=== PATIENT | female | born 1995 | race Caucasian/White ===

== ENCOUNTER 2020-06-07 11:05 | Observation (INO) | payer OTHER ==
[~2020-06-07] VITALS: Ht 170.2 cm; Wt 89.0 kg
[2020-06-07 12:07] LABS: BASOPHILS % (AUTO) 0 % (0-1); EOSINOPHILS % (AUTO) 1 % (1-7); LYMPHOCYTES % (AUTO) 11 % (22-44); MEAN CORPUSCULAR HEMOGLOBIN 29.3 pg (27.0-34.8); MEAN CORPUSCULAR HGB CONC 33.6 g/dL (32.4-35.8); MEAN PLATELET VOLUME 8.8 fL (7.4-10.4); MONOCYTES % (AUTO) 6 % (2-9); NEUTROPHILS % (AUTO) 82 % (42-75); PLATELET COUNT 235 x10^3/uL (130-400); RED BLOOD COUNT 4.06 x10^6/uL (3.82-5.3); RED CELL DISTRIBUTION WIDTH 13.2 % (9.6-15.2)
[2020-06-07 12:23] LABS: MD SCAN
[2020-06-07] MEDS: D5%-LACTATED RINGERS 1,000 ML IV SCH ×2 (12:45→20:45)
[2020-06-07] MEDS: AZITHROMYCIN 500 MG in SODIUM CHLORIDE 0.9% 250 ML IV ONE ×2 (16:40→17:40)
[2020-06-07] MEDS ORDERED: METOCLOPRAMIDE 5 MG/ML, 2ML ONE (17:17)
[2020-06-07] MEDS ORDERED: SODIUM CITRATE/CITRIC ACID 15 ML UDC ONE (17:17)
[2020-06-07] MEDS ORDERED: CEFAZOLIN 1,000 MG ONE (17:25)
[2020-06-07] MEDS ORDERED: EPHEDRINE 50 MG/ML, 1ML ONE (17:25)
[2020-06-07] MEDS ORDERED: EPINEPHRINE 1 MG/ML, 1ML ONE (17:25)
[2020-06-07] MEDS ORDERED: FENTANYL PF 100 MCG/2ML ONE (17:26)
[2020-06-07] MEDS ORDERED: ONDANSETRON 2MG/ML, 2ML IVPush PRN (17:30)
[2020-06-07] MEDS ORDERED: morphine SULFATE 10 MG/ML, 1ML IVPush PRN (17:30)
[2020-06-07] MEDS ORDERED: PROMETHAZINE 12.5 MG SUPP PR PRN (17:30)
[2020-06-07] MEDS ORDERED: ACETAMINOPHEN 325 MG TABLET PO PRN (17:30)
[2020-06-07] MEDS ORDERED: MEPERIDINE/PF 25MG/0.5ML IVPush PRN (17:30)
[2020-06-07] MEDS ORDERED: FENTANYL PF 100 MCG/2ML IV PRN (17:30)
[2020-06-07] MEDS ORDERED: HYDROcodone/APAP 7.5-325MG/15ML UDC PO PRN (17:30)
[2020-06-07] MEDS ORDERED: EPHEDRINE 50 MG/ML, 1ML IVPush PRN (17:30)
[2020-06-07] MEDS ORDERED: SODIUM CITRATE/CITRIC ACID 30 ML UDC PO ONE (20:00)
[2020-06-07] MEDS ORDERED: METOCLOPRAMIDE 5 MG/ML, 2ML IVPush ONE (20:00)
[2020-06-07] MEDS ORDERED: LACTATED RINGERS 1,000 ML IVBOLUS ONE (20:00)
[2020-06-07] MEDS ORDERED: PREN1TAB60 PO (20:51)
[2020-06-07] MEDS ORDERED: progesterone HOMEVAG (20:53)
[2020-06-07] MEDS ORDERED: ACET325T14 PO (20:58)
== END 2020-06-07 22:49 | disposition home or self-care (01) ==
LOC: LDIP 11:05
PROVIDERS: ADMIT Obstetrics & Gynecology Maternal & Fetal Medicine; ATTEND Obstetrics & Gynecology Maternal & Fetal Medicine
DX: O34.02 Maternal care for unspecified congenital malformation of uterus, second trimester (principal); Q51.3 Bicornate uterus; Z20.828 Contact with and (suspected) exposure to other viral communicable diseases; O34.32 Maternal care for cervical incompetence, second trimester; O26.872 Cervical shortening, second trimester; Z3A.22 22 weeks gestation of pregnancy
CPT/HCPCS: 36415; 59320; 85025; 87635; 96365; 96375; 99201; G0378; J0171; J0456; J0690; J2765; J3010; J7050; J7120; G0463

== ENCOUNTER 2020-06-16 12:58 | Outpatient (CLI) | payer OTHER ==
[~2020-06-16] VITALS: Ht 170.2 cm; Wt 86.3 kg
[~2020-06-16 12:58] MED LIST: ACET325T14 PO; PREN1TAB60 PO; progesterone HOMEVAG
== END 2020-06-16 13:05 | disposition home or self-care (01) ==
LOC: LDOP 12:58
PROVIDERS: ATTEND Obstetrics & Gynecology Maternal & Fetal Medicine
DX: O46.92 Antepartum hemorrhage, unspecified, second trimester (principal); Z3A.23 23 weeks gestation of pregnancy
CPT/HCPCS: 99211; G0463

== ENCOUNTER 2020-07-14 13:12 | Outpatient (CLI) | payer OTHER ==
[~2020-07-14] VITALS: Ht 170.2 cm; Wt 90.9 kg
[2020-07-14 13:33] VITALS: BP 117/74
[2020-07-14 13:59] LABS: MICROSCOPIC INDICATED
== END 2020-07-14 14:31 | disposition home or self-care (01) ==
LOC: LDOP 13:12
PROVIDERS: ATTEND Obstetrics & Gynecology Maternal & Fetal Medicine
DX: O26.892 Other specified pregnancy related conditions, second trimester (principal); Z3A.27 27 weeks gestation of pregnancy
CPT/HCPCS: 81001; 84112; 87086; 99211; G0463

== ENCOUNTER 2020-07-24 14:47 | Observation (INO) | payer OTHER ==
[~2020-07-24] VITALS: Ht 170.2 cm; Wt 91.8 kg
[2020-07-24] MEDS ORDERED: ONDANSETRON 2MG/ML, 2ML ONE ×2 (15:27→21:35)
[2020-07-24] MEDS ORDERED: ONDANSETRON 2MG/ML, 2ML IVPush ONE (15:30)
[2020-07-24] MEDS ORDERED: D5%-LACTATED RINGERS 1,000 ML IV SCH (15:30)
[2020-07-24 15:38] VITALS: BP 127/76
[2020-07-24 16:32] LABS: MICROSCOPIC AUTO
[2020-07-24] MEDS ORDERED: LORA1TAB46 PO (16:38)
[2020-07-24] MEDS ORDERED: HYDROmorphone 1 MG/ML, 1ML INJ IV ONE (17:30)
[2020-07-24] MEDS ORDERED: ONDANSETRON 2MG/ML, 2ML IVPush PRN (17:30)
[2020-07-24] MEDS: D5%-LACTATED RINGERS 1,000 ML IV SCH (18:02)
[2020-07-24] MEDS ORDERED: CEFTRIAXONE PMX 1GM/50ML 50 ML IV ONE (19:00)
[2020-07-24] MEDS ORDERED: D5%-0.9% NACL 1,000 ML IV SCH (19:00)
[2020-07-24] MEDS ORDERED: ALUMINUM/MAG/SIMETHICONE 30 ML UDC ONE (19:41)
[2020-07-24] MEDS ORDERED: ALUMINUM/MAG/SIMETHICONE 30 ML UDC PO PRN (20:00)
[2020-07-25 01:21] LABS: MICROSCOPIC INDICATED
[2020-07-25] MEDS ORDERED: ACETAMINOPHEN 325 MG TABLET ONE (02:55)
[2020-07-25] MEDS ORDERED: ACETAMINOPHEN 325 MG TABLET PO PRN (03:00)
[2020-07-25] MEDS: D5%-LACTATED RINGERS 1,000 ML IV SCH (04:43)
[2020-07-25 06:15] LABS: BASOPHILS % (AUTO) 0 % (0-1); EOSINOPHILS % (AUTO) 0 % (1-7); LYMPHOCYTES % (AUTO) 6 % (22-44); MEAN CORPUSCULAR HEMOGLOBIN 30.6 pg (27.0-34.8); MEAN CORPUSCULAR HGB CONC 34.5 g/dL (32.4-35.8); MONOCYTES % (AUTO) 6 % (2-9); NEUTROPHILS % (AUTO) 88 % (42-75); PLATELET COUNT 164 x10^3/uL (130-400); RED BLOOD COUNT 3.42 x10^6/uL (3.82-5.3); RED CELL DISTRIBUTION WIDTH 13.5 % (9.6-15.2)
[2020-07-25 06:25] LABS: CHLORIDE 109 mmol/L (98-107)
[2020-07-25 06:32] LABS: ALANINE AMINOTRANSFERASE 14 U/L (12-78); ALBUMIN 2.2 g/dL (3.4-5.0); ALKALINE PHOSPHATASE 86 U/L (45-117); ANION GAP 6 mmol/L (5-15); BILIRUBIN,TOTAL 0.3 mg/dL (0.2-1.0); CALCIUM 8.1 mg/dL (8.5-10.1); CREATININE 0.57 mg/dL (0.55-1.02); TOTAL PROTEIN 5.7 g/dL (6.4-8.2)
[2020-07-25 07:01] LABS: MD SCAN
== END 2020-07-25 09:41 | disposition home or self-care (01) ==
LOC: LDOP 14:47 → LDIP 16:54
PROVIDERS: ADMIT Obstetrics & Gynecology Maternal & Fetal Medicine; ATTEND Obstetrics & Gynecology Maternal & Fetal Medicine
DX: O21.2 Late vomiting of pregnancy (principal); O26.893 Other specified pregnancy related conditions, third trimester; R10.9 Unspecified abdominal pain; R00.0 Tachycardia, unspecified; O99.891 Other specified diseases and conditions complicating pregnancy; M54.9 Dorsalgia, unspecified; O99.213 Obesity complicating pregnancy, third trimester; E66.9 Obesity, unspecified; Z3A.29 29 weeks gestation of pregnancy; Z87.440 Personal history of urinary (tract) infections
CPT/HCPCS: 36415; 59025; 76770; 80053; 81001; 85025; 87040; 87086; 93005; 96361; 96374; 96376; 99284; G0378; J0696; J2405; J7042; J7121; 96360; 96375